=== PATIENT | female | born 1970 | race Caucasian/White ===

== ENCOUNTER → 2016-06-21 | Outpatient (CLI) | payer OTHER | LOC: KOH-I 15:51 | DX: M25.552 Pain in left hip (principal); M25.562 Pain in left knee | CPT/HCPCS: 73502; 73562 ==

== ENCOUNTER → 2016-10-05 | Outpatient (CLI) | payer OTHER | LOC: KOH-I 14:20 | DX: M25.562 Pain in left knee (principal); M25.552 Pain in left hip; S83.242A Other tear of medial meniscus, current injury, left knee, initial encounter | CPT/HCPCS: 73721 ==

== ENCOUNTER → 2020-04-22 | Outpatient (CLI) | payer OTHER | LOC: LBRF 21:16 | DX: R30.0 Dysuria (principal) | CPT/HCPCS: 87086 ==

== ENCOUNTER → 2020-08-07 | Outpatient (CLI) | payer OTHER ==
[2020-08-07 17:27] LABS: HEMOGLOBIN 14.1 gm/dl (12.3-15.3); RED BLOOD COUNT 4.5 M/UL (4.00-5.10); WHITE BLOOD COUNT 8.5 K/UL (4.5-11.0)
[2020-08-07 17:32] LABS: BUN/CREATININE RATIO 31 (0-10)
== END ==
LOC: LAB 16:19
PROVIDERS: Student in an Organized Health Care Education/Training Program
DX: F40.218 Other animal type phobia (principal)
CPT/HCPCS: 36415; 80053; 85027

== ENCOUNTER → 2021-04-06 | Outpatient (CLI) | payer OTHER ==
[2021-04-06 17:59] LABS: HEMOGLOBIN 14.6 gm/dl (12.3-15.3); RED BLOOD COUNT 4.62 M/UL (4.00-5.10); WHITE BLOOD COUNT 9.5 K/UL (4.5-11.0)
[2021-04-06 18:24] LABS: BUN/CREATININE RATIO 21 (0-10)
== END ==
LOC: LAB 16:26
PROVIDERS: Family Medicine
DX: Z00.8 Encounter for other general examination (principal); E78.5 Hyperlipidemia, unspecified; I10 Essential (primary) hypertension; E55.9 Vitamin D deficiency, unspecified
CPT/HCPCS: 80053; 80061; 81001; 82607; 83036; 84439; 84443; 85025

== ENCOUNTER 2021-06-22 22:40 | Inpatient (IN) | payer OTHER ==
[~2021-06-22] VITALS: Ht 167.6 cm; Wt 82.0 kg
[2021-06-22 23:00] LABS: HEMOGLOBIN 13.1 gm/dl (12.3-15.3); RED BLOOD COUNT 4.09 M/UL (4.00-5.10); WHITE BLOOD COUNT 10.2 K/UL (4.5-11.0)
[2021-06-22 23:36] LABS: BUN/CREATININE RATIO 12 (0-10)
[2021-06-23] MEDS ORDERED: ZOLPIDEM TARTRA10 MG PO (04:46)
[2021-06-23] MEDS ORDERED: TENORMIN 25 MG25 MG PO (04:47)
[2021-06-23] MEDS ORDERED: VITAMIN D21250 MCG PO (04:47)
[2021-06-23] MEDS ORDERED: ONDANSETRON HCL8 MG PO (04:48)
[2021-06-23] MEDS ORDERED: PROTONIX 40 MG40 M1 PO (04:48)
[2021-06-23] MEDS ORDERED: OXYCODONE HCL30 MG PO ×2 (04:48→09:55)
[2021-06-23] MEDS ORDERED: MELOXICAM15 MG PO (04:49)
[2021-06-23] MEDS ORDERED: GABAPENTIN400 MG PO (04:50)
[2021-06-23] MEDS ORDERED: CARISOPRODOL350 MG PO (04:50)
[2021-06-23] MEDS ORDERED: ATIVAN 1MG TABLE1 MG PO (04:51)
[2021-06-23] MEDS ORDERED: ATORVASTATIN CA10 MG PO (04:51)
[2021-06-23] MEDS ORDERED: AMITRIPTYLINE100 MG PO (04:51)
[2021-06-23] MEDS ORDERED: PHENAZOPYRIDIN100 MG PO (04:52)
[2021-06-23] MEDS ORDERED: MACROBID 100 M100 MG PO (04:52)
[2021-06-23] MEDS ORDERED: PHENAZOPYRIDIN200 MG PO (04:52)
[2021-06-23] MEDS ORDERED: LIDOCAINE-PRILOC5 GM TP (04:53)
[2021-06-23 07:02] LABS: HEMOGLOBIN 15.2 gm/dl (12.3-15.3); RED BLOOD COUNT 4.73 M/UL (4.00-5.10); WHITE BLOOD COUNT 17.8 K/UL (4.5-11.0)
[2021-06-23] MEDS ORDERED: VITAMIN D325 MC6 PO (09:55)
[2021-06-23] MEDS ORDERED: ZYRTEC10 M3 PO (09:56)
[2021-06-23] MEDS ORDERED: TYLENOL EXTRA500 MG PO (09:56)
[2021-06-23] MEDS ORDERED: BENADRYL 25MG C25 MG PO (09:56)
[2021-06-23 12:41] LABS: HEMOGLOBIN 14.6 gm/dl (12.3-15.3); RED BLOOD COUNT 4.76 M/UL (4.00-5.10); WHITE BLOOD COUNT 14.1 K/UL (4.5-11.0)
[2021-06-23 18:07] LABS: HEMOGLOBIN 14.4 gm/dl (12.3-15.3); RED BLOOD COUNT 4.54 M/UL (4.00-5.10); WHITE BLOOD COUNT 10.7 K/UL (4.5-11.0)
--- NOTE | 2021-06-23 18:33 | NUR ---
[facility]ON NOTIFIED OF PATIENT [facility] OF 3. ROBSON [employer] POL[employer]ER NAZIA ON UNIT TO SEE ANOTHER PATIENT. WILL FOLLOW.
[2021-06-24 00:26] LABS: RED BLOOD COUNT 4.49 M/UL (4.00-5.10); WHITE BLOOD COUNT 8.6 K/UL (4.5-11.0)
[2021-06-24 00:55] LABS: BUN/CREATININE RATIO 20 (0-10)
[2021-06-24] MEDS ORDERED: DICLOFENAC SOD100 GM TP (04:54)
[2021-06-24 05:42] LABS: HEMOGLOBIN 13.2 gm/dl (12.3-15.3); RED BLOOD COUNT 4.25 M/UL (4.00-5.10); WHITE BLOOD COUNT 6.5 K/UL (4.5-11.0)
[2021-06-24 06:35] LABS: BUN/CREATININE RATIO 23 (0-10)
[2021-06-24 10:41] LABS: BUN/CREATININE RATIO 21 (0-10)
[2021-06-24 14:06] LABS: HEMOGLOBIN 12.7 gm/dl (12.3-15.3); RED BLOOD COUNT 3.95 M/UL (4.00-5.10); WHITE BLOOD COUNT 7.4 K/UL (4.5-11.0)
[2021-06-24 14:29] LABS: BUN/CREATININE RATIO 26 (0-10)
[2021-06-24 19:18] LABS: HEMOGLOBIN 12.3 gm/dl (12.3-15.3); RED BLOOD COUNT 3.9 M/UL (4.00-5.10); WHITE BLOOD COUNT 7.5 K/UL (4.5-11.0)
[2021-06-24 19:44] LABS: BUN/CREATININE RATIO 25 (0-10)
[2021-06-24 23:43] LABS: BUN/CREATININE RATIO 24 (0-10)
[2021-06-25 00:34] LABS: HEMOGLOBIN 11.8 gm/dl (12.3-15.3); RED BLOOD COUNT 3.81 M/UL (4.00-5.10)
[2021-06-25 00:36] LABS: WHITE BLOOD COUNT 10.6 K/UL (4.5-11.0)
[2021-06-25 02:07] LABS: BUN/CREATININE RATIO 24 (0-10)
[2021-06-25 05:16] LABS: HEMOGLOBIN 11.1 gm/dl (12.3-15.3); RED BLOOD COUNT 3.58 M/UL (4.00-5.10); WHITE BLOOD COUNT 10.7 K/UL (4.5-11.0)
[2021-06-25 05:28] LABS: BUN/CREATININE RATIO 23 (0-10)
[2021-06-25 10:17] LABS: HEMOGLOBIN 11.2 gm/dl (12.3-15.3); RED BLOOD COUNT 3.57 M/UL (4.00-5.10); WHITE BLOOD COUNT 10.5 K/UL (4.5-11.0)
[2021-06-25 10:34] LABS: BUN/CREATININE RATIO 22 (0-10)
[2021-06-25 14:21] LABS: BUN/CREATININE RATIO 21 (0-10)
[2021-06-25 18:45] LABS: RED BLOOD COUNT 3.82 M/UL (4.00-5.10)
[2021-06-25 19:01] LABS: BUN/CREATININE RATIO 20 (0-10)
[2021-06-25 22:54] LABS: BUN/CREATININE RATIO 16 (0-10)
[2021-06-26 01:34] LABS: HEMOGLOBIN 11.2 gm/dl (12.3-15.3); RED BLOOD COUNT 3.57 M/UL (4.00-5.10)
[2021-06-26 01:54] LABS: BUN/CREATININE RATIO 15 (0-10)
[2021-06-26 06:31] LABS: RED BLOOD COUNT 3.48 M/UL (4.00-5.10); WHITE BLOOD COUNT 13.1 K/UL (4.5-11.0)
[2021-06-26 06:50] LABS: BUN/CREATININE RATIO 19 (0-10)
[2021-06-26 12:23] LABS: HEMOGLOBIN 10.8 gm/dl (12.3-15.3); RED BLOOD COUNT 3.44 M/UL (4.00-5.10); WHITE BLOOD COUNT 14.2 K/UL (4.5-11.0)
[2021-06-27 10:17] LABS: HEMOGLOBIN 8.9 gm/dl (12.3-15.3)
[2021-06-27 10:18] LABS: RED BLOOD COUNT 2.88 M/UL (4.00-5.10); WHITE BLOOD COUNT 9.9 K/UL (4.5-11.0)
[2021-06-27 10:38] LABS: BUN/CREATININE RATIO 20 (0-10)
--- NOTE | 2021-06-28 01:40 | NUR ---
APPROACHED BY PATIENT'S STATING HE DID NOT WANT DR. BAEZ BACK INTO HIS 'S ROOM FOR ANY REASON. STATES, DR BAEZ IMPLIED HIS WAS BRAIN . AND THAT IF HE WAS APPROACHED TO END HIS 'S LIFE SUPPORT HE WOULD HAVE HER TRANSFERRED TO ANOTHER FACILTY THAT WOULDNT TURN OFF LIFE SUPPORT UNTIL HE WAS READY TO DO SO. DAIRY HUSBANDRY TEACHER ELIANE PAYNE AWARE.
[2021-06-28] MEDS ORDERED: COLACE SOL100 MG/10 PO (13:05)
[2021-06-28] MEDS ORDERED: ENOXAPARIN80 MG/0.8 SC (13:05)
[2021-06-28] MEDS ORDERED: SENNA LAX8.6 MG PO (13:05)
[2021-06-28] MEDS ORDERED: AMIODARONE HCL200 MG PO (13:05)
[2021-06-28] MEDS ORDERED: ASPIRIN81 MG PO (13:05)
--- NOTE | 2021-06-28 18:38 | NUR ---
AFTER CONVERSATION WITH DR. SAMANO THE PATIENTS HAS DECIDED THAT HE WOULD LIKE TO HAVE HIS TRANSFERRED TO ANOTHER FACILITY FOR A SECOND OPINION ABOUT BRAIN . DR. ABDUL WAS NOTIFIED AND ADMINISTRATION WAS INVOLVED. JOSE CLARK SPOKE WITH THE PATIENTS ALONG WITH MYSELF, DR. ROBLES AND ANTHONY CONNELLY. HE STILL WISHES TO TRANSFER HIS TO ANOTHER FACILITY FOR A SECOND OPINION. DR. BOSS HAS BEEN NOTIFIED AND HAS AGREED THAT THE PATIENT SHOULD BE TRANSFERRED FOR NEUROLOGY COVERAGE WE DO NOT HAVE ANY UNTIL MondayJune. THE PATIENT HAS BEEN ACCEPTED AT [facility] BY DR. LOZANO AND IS AWAITING A BED.
--- NOTE | 2021-06-28 21:49 | NUR ---
RECEIVED CALL FROM [facility]. UPDATE GIVEN REQUESTED. CURRENTLY NO ICU BEDS AVAILABLE.
== END 2021-06-29 18:55 | disposition short-term general hospital (02) | DRG 917 ==
LOC: ER1 22:40 → CDU 06-23 01:30 → CCU 06-23 01:30
PROVIDERS: Family Medicine; Internal Medicine; ADMIT Internal Medicine
PROC: 5A1955Z Respiratory Ventilation, Greater than 96 Consecutive Hours (ICD-10-PCS; 2021-06-22)
PROC: 0BH17EZ Insertion of Endotracheal Airway into Trachea, Via Natural or Artificial Opening (ICD-10-PCS; 2021-06-22)
PROC: 03HY32Z Insertion of Monitoring Device into Upper Artery, Percutaneous Approach (ICD-10-PCS; principal; 2021-06-23)
PROC: 4A133B1 Monitoring of Arterial Pressure, Peripheral, Percutaneous Approach (ICD-10-PCS; 2021-06-23)
PROC: 4A133J1 Monitoring of Arterial Pulse, Peripheral, Percutaneous Approach (ICD-10-PCS; 2021-06-23)
PROC: B24BZZZ Ultrasonography of Heart with Aorta (ICD-10-PCS; 2021-06-23)
PROC: 02HV33Z Insertion of Infusion Device into Superior Vena Cava, Percutaneous Approach (ICD-10-PCS; 2021-06-23)
PROC: B548ZZA Ultrasonography of Superior Vena Cava, Guidance (ICD-10-PCS; 2021-06-23)
PROC: 3E03329 Introduction of Other Anti-infective into Peripheral Vein, Percutaneous Approach (ICD-10-PCS; 2021-06-23)
PROC: 4A00X4Z Measurement of Central Nervous Electrical Activity, External Approach (ICD-10-PCS; 2021-06-25)
DX: T42.4X1A Poisoning by benzodiazepines, accidental (unintentional), initial encounter (principal); A41.89 Other specified sepsis; R65.21 Severe sepsis with septic shock; J96.01 Acute respiratory failure with hypoxia; I46.8 Cardiac arrest due to other underlying condition; Z20.822 Contact with and (suspected) exposure to COVID-19; Z66 Do not resuscitate; R57.0 Cardiogenic shock; I21.A1 Myocardial infarction type 2; I49.01 Ventricular fibrillation; J69.0 Pneumonitis due to inhalation of food and vomit; K72.00 Acute and subacute hepatic failure without coma; K56.7 Ileus, unspecified; G93.1 Anoxic brain damage, not elsewhere classified; I47.2 Ventricular tachycardia; J98.11 Atelectasis; K59.00 Constipation, unspecified; M54.9 Dorsalgia, unspecified; I10 Essential (primary) hypertension; F41.9 Anxiety disorder, unspecified; E55.9 Vitamin D deficiency, unspecified; G89.4 Chronic pain syndrome; R40.2433 Glasgow coma scale score 3-8, at hospital admission; I07.1 Rheumatic tricuspid insufficiency; K21.9 Gastro-esophageal reflux disease without esophagitis; M79.7 Fibromyalgia; T40.2X1A Poisoning by other opioids, accidental (unintentional), initial encounter; E66.9 Obesity, unspecified; Z79.01 Long term (current) use of anticoagulants; Z79.82 Long term (current) use of aspirin; Z90.710 Acquired absence of both cervix and uterus; Z82.49 Family history of ischemic heart disease and other diseases of the circulatory system
CPT/HCPCS: ECHO; 31500; 36415; 36556; 36600; 51702; 70450; 71045; 74018; 80048; 80053; 80307; 81001; 82150; 82247; 82550; 82553; 82803; 82962; 83605; 83690; 83735; 84075; 84100; 84450; 84460; 84484; 84702; 85025; 85379; 85384; 85610; 85730; 86850; 86900; 86901; 87040; 87070; 87081; 87086; 87205; 92950; 93005; 93306; 94002; 94003; 94760; 95824; 99285; C9113; J0171; J0282; J0295; J0360; J0610; J1644; J1650; J2704; J3370; J3475; J3480; J7030; J7040; J7070; Q9967; U0002